=== PATIENT | female | born 1995 | race American Indian/Alaskan Native ===

== ENCOUNTER 2021-08-26 19:50 | Emergency (ER) | payer MEDICAID ==
[2021-08-27] MEDS ORDERED: ACETAMINOPHEN 500 MG TAB PO ONE (02:49)
[2021-08-27] MEDS ORDERED: predniSONE 50 MG TAB PO ONE (02:49)
--- NOTE | 2021-08-27 03:07 | Emergency Department Report ---
- General Chief Complaint: Upper Respiratory Infection Stated Complaint: COVID SYMPTOMS Source: patient Mode of arrival: Ambulatory Limitations: No Limitations - History of Present Illness Initial Comments: Patient is a A0 26-year-old -[place] female is approximately 22 weeks gestation and who presented to the ED with complaint of acute onset persistent nasal and sinus congestion, persistent frontal sinus pressure and headache, diffuse body aches and pains, persistent dry cough for the last 3 days. Patient states that her own mother with whom she spent time a week ago tested positive for COVID-19 viral infection despite being fully vaccinated for Covid. Patient also states that she is also fully vaccinated against Covid-19. Patient states that the symptoms have been persistent, and worse especially in the last 24 hours. Patient denies dizziness, syncope, fever, chills, abdominal pain, dysuria, urinary frequency and urgency, sore throat, nausea and vomiting or diarrhea. MD Complaint: cough, rhinorrhea, nasal congestion, sinus pain, other (Diffuse body aches and pains) -: Sudden, days(s) (3) Severity: severe Severity scale (0 -10): 7 Quality: sharp, aching Consistency: constant Improves With: nothing Worsens With: nothing Context: sick contacts Associated Symptoms: denies other symptoms, myalgias, headache, rhinorrhea, na dougie congestion, cough. denies: diaphoresis, stiff neck, chest pain, shortness of breath, abdominal pain, nausea, diarrhea, dysuria, rash, confusion, right sweats, epistaxis, ear pain, other Treatments Prior to Arrival: none - Related Data Previous Rx's Medication Instructions Recorded Last Taken Type Acetaminophen [Tylenol] 500 mg PO Q6HR PRN #30 tablet 08/27/21 Unknown Rx Azithromycin [Zithromax Z-DELORES] 250 mg PO DAILY #6 tablet 08/27/21 Unknown Rx Cetirizine HCl [Zyrtec 10mg tab] 10 mg PO DAILY #30 tablet 08/27/21 Unknown Rx Codeine Phosphate/Guaifenesin 10 ml PO Q8H PRN #120 ml 08/27/21 Unknown Rx [Guaifen-Codeine 200-20 mg/10Ml] predniSONE [Deltasone] 40 mg PO QDAY #10 tab 08/27/21 Unknown Rx Allergies Allergy/AdvReac Type Severity Reaction Status Date / Time No Known Allergies Allergy Unverified 08/26/21 18:37 ED Review of Systems ROS: Stated complaint: COVID SYMPTOMS Other details as noted in HPI Constitutional: malaise, weakness. denies: chills, fever Eyes: denies: eye pain, eye discharge, vision change ENT: congestion, other (Frontal sinus pressure and headache). denies: ear pain, throat pain Respiratory: cough. denies: shortness of breath, wheezing Cardiovascular: denies: chest pain, palpitations Endocrine: no symptoms reported Gastrointestinal: denies: abdominal pain, nausea, diarrhea Genitourinary: denies: urgency, dysuria, discharge Musculoskeletal: arthralgia, myalgia. denies: back pain, joint swelling Skin: denies: rash, lesions Neurological: headache (Frontal headache). denies: weakness, paresthesias Psychiatric: denies: anxiety, depression Hematological/Lymphatic: denies: easy bleeding, easy bruising ED Past Medical Hx - Past Medical History Previous Medical History?: No - Surgical History Past Surgical History?: No - Medications Home Medications: Home Medications Medication Instructions Recorded Confirmed Last Taken Type Acetaminophen [Tylenol] 500 mg PO Q6HR PRN #30 tablet 08/27/21 Unknown Rx Azithromycin [Zithromax Z-DELORES] 250 mg PO DAILY #6 tablet 08/27/21 Unknown Rx Cetirizine HCl [Zyrtec 10mg tab] 10 mg PO DAILY #30 tablet 08/27/21 Unknown Rx Codeine Phosphate/Guaifenesin 10 ml PO Q8H PRN #120 ml 08/27/21 Unknown Rx [Guaifen-Codeine 200-20 mg/10Ml] predniSONE [Deltasone] 40 mg PO QDAY #10 tab 08/27/21 Unknown Rx ED Physical Exam - General Limitations: No Limitations General appearance: alert, in no apparent distress - Head Head exam: Present: atraumatic, normocephalic, normal inspection - Eye Eye exam: Present: normal appearance, PERRL, EOMI Pupils: Present: normal accommodation - ENT ENT exam: Present: normal orophraynx, mucous membranes moist, TM's normal bilaterally, normal external ear exam, other (Grossly congested nasal passages; palpable frontal and maxillary sinus tenderness) - Neck Neck exam: Present: normal inspection, full ROM - Respiratory Respiratory exam: Present: normal lung sounds bilaterally. Absent: respiratory distress, wheezes, rales, rhonchi, chest wall tenderness, accessory muscle use, decreased breath sounds, prolonged expiratory - Cardiovascular Cardiovascular Exam: Present: normal rhythm, tachycardia, normal heart sounds. Absent: systolic murmur, diastolic murmur, rubs, gallop - GI/Abdominal GI/Abdominal exam: Present: soft, normal bowel sounds. Absent: tenderness, guarding, rebound, hyperactive bowel sounds - Extremities Exam Extremities exam: Present: normal inspection, full ROM, normal capillary refill - Back Exam Back exam: Present: normal inspection, full ROM. Absent: tenderness, CVA tenderness (R), CVA tenderness (L), muscle spasm, paraspinal tenderness, vertebral tenderness - Neurological Exam Neurological exam: Present: alert, oriented X3, CN II-XII intact, normal gait, reflexes normal - Psychiatric Psychiatric exam: Present: normal affect, normal mood - Skin Skin exam: Present: warm, dry, intact, normal color. Absent: rash ED Course Vital Signs 08/26/21 22:00 Temperature 98.8 F Pulse Rate 100 H Respiratory 18 Rate Blood Pressure 121/69 O2 Sat by Pulse 99 Oximetry ED Medical Decision Making - Medical Decision Making This is a A0 26-year-old -[place] female is approximately 22 weeks gestation and who presented to the ED with complaint of acute onset persistent nasal and sinus congestion, persistent frontal sinus pressure and headache, diffuse body aches and pains, persistent dry cough for the last 3 days. Patient states that her own mother with whom she spent time a week ago tested positive for COVID-19 viral infection despite being fully vaccinated for Covid. Patient also states that she is also fully vaccinated against Covid-19. Patient states that the symptoms have been persistent, and worse especially in the last 24 hours. In the ED, patient is alert and oriented x3 and is not in any distress. Patient was treated for pain in the ED with Tylenol. Patient was discharged home on medications and advised to follow-up with her primary care physician or [employer] physician in 5 to 7 days for reevaluation. Patient was also advised to go for COVID-19 diagnostic test in any of the outpatient facilities to ascertain the status. Patient was advised to return to the ED immediately if symptoms get worse. - Differential Diagnosis URI; sinusitis; bronchitis; viral syndrome; COVID-19 Critical care attestation.: If time is entered above; I have spent that time in minutes in the direct care of this critically ill patient, excluding procedure time. ED Disposition Clinical Impression: Acute upper respiratory infection Acute bronchitis Qualifiers: Bronchitis organism: other organism Qualified Code(s): J20.8 - Acute bronchitis due to other specified organisms Acute frontal sinusitis Qualifiers: Recurrence: non-recurrent Qualified Code(s): J01.10 - Acute frontal sinusitis, unspecified Disposition: HOME / SELF CARE / HOMELESS Is pt being admited?: No Does the pt Need Aspirin: No Condition: Stable Instructions: Acute Bronchitis (ED), Sinusitis, Adult, [id number], Cough, Adult, [id number], Upper Respiratory Infection, Adult, [id number], Acute Bronchitis, Adult, [id number] Additional Instructions: Take medication with food, drink plenty of fluids and follow-up with your primary care physician in 5 to 7 days for reevaluation. Return to the ED immediately if symptoms get worse. Prescriptions: Acetaminophen [Tylenol] 500 mg PO Q6HR PRN #30 tablet PRN Reason: pain or fever predniSONE [Deltasone] 40 mg PO QDAY #10 tab Codeine Phosphate/Guaifenesin [Guaifen-Codeine 200-20 mg/10Ml] 10 ml PO Q8H PRN #120 ml PRN Reason: Cough Azithromycin [Zithromax Z-DELORES] 250 mg PO DAILY #6 tablet Cetirizine HCl [Zyrtec 10mg tab] 10 mg PO DAILY #30 tablet Referrals: NAVEEN PEREZ MD [Staff Physician] - 7-10 days Time of Disposition: 03:13 Print Language: IRISH
[2021-08-27 03:57] VITALS: BP 117/68
== END 2021-08-27 03:00 | disposition home or self-care (01) ==
LOC: ED 19:50
DX: O99.512 Diseases of the respiratory system complicating pregnancy, second trimester (principal); J06.9 Acute upper respiratory infection, unspecified; J01.10 Acute frontal sinusitis, unspecified; J20.9 Acute bronchitis, unspecified; Z79.899 Other long term (current) drug therapy; Z3A.22 22 weeks gestation of pregnancy
CPT/HCPCS: 99282; J7512

== ENCOUNTER 2021-09-22 06:30 | Outpatient (CLI) | payer MEDICAID ==
[2021-09-22] MEDS ORDERED: LACTATED RINGERS 500 ML IV ONE ×2 (08:30→09:28)
[2021-09-22 09:03] LABS: Bilirubin,Urine NEG (Negative); Blood,Urine NEG (Negative); Color,Urine Straw (Yellow); Protein,Urine <15 mg/dL mg/dL (Negative); RBC,Urine < 1.0 /HPF (0.0-6.0); Urobilinogen,Urine < 2.0 mg/dL (<2.0)
[2021-09-22 09:08] LABS: WBC,Urine < 1.0 /HPF (0.0-6.0)
[2021-09-22 09:37] VITALS: BP 120/57
[2021-09-22] MEDS ORDERED: ACETAMINOPHEN 500 MG TAB PO NR (10:09)
== END 2021-09-22 10:45 | disposition home or self-care (01) ==
LOC: TRG 06:30 → APU 06:36 → TRG 10:45
PROVIDERS: ATTEND Obstetrics & Gynecology
DX: Z34.92 Encounter for supervision of normal pregnancy, unspecified, second trimester (principal); Z3A.26 26 weeks gestation of pregnancy
CPT/HCPCS: 59025; 81001